=== PATIENT | male | born 1970 | race Caucasian/White ===

== ENCOUNTER 2018-03-16 06:06 | Outpatient (CLI) | payer BC ==
[~2018-03-16] VITALS: Ht 175.3 cm; Wt 88.0 kg
[2018-03-16] MEDS ORDERED: HYDR12.56 PO (12:56)
[2018-03-16] MEDS ORDERED: DICL75TA2 PO (12:56)
[2018-03-16] MEDS ORDERED: SIMV40TA4 PO (12:56)
[2018-03-16] MEDS ORDERED: TURM500C4 PO (12:56)
[2018-03-16] MEDS ORDERED: [UNRECOGNIZED DRUG - CODE] PO (12:56)
[2018-03-16] MEDS ORDERED: CHOL200059 PO (12:56)
[2018-03-16] MEDS ORDERED: TRAM50TA2 PO (12:56)
[2018-03-16] MEDS ORDERED: METF10002 PO (12:56)
[2018-03-16] MEDS ORDERED: PANT40TA3 PO (12:56)
== END 2018-03-16 13:00 ==
LOC: PREOP 06:06
PROVIDERS: ATTEND Otolaryngology Otolaryngology/Facial Plastic Surgery
DX: Z01.818 Encounter for other preprocedural examination (principal); J38.7 Other diseases of larynx

== ENCOUNTER 2018-03-20 07:33 | Day surgery (SDC) | payer BC ==
[~2018-03-20] VITALS: Ht 175.3 cm; Wt 88.0 kg
[~2018-03-20 07:33] MED LIST: CHOL200059 PO; DICL75TA2 PO; HYDR12.56 PO; METF10002 PO; PANT40TA3 PO; SIMV40TA4 PO; TRAM50TA2 PO; TURM500C4 PO; [UNRECOGNIZED DRUG - CODE] PO
[2018-03-20 08:35] VITALS: BP 154/91
[2018-03-20] MEDS ORDERED: LIDOCAINE/EPI 1%-1:200,000 (XYLOCAINE) 10 ML VIAL ONE (08:46)
[2018-03-20 08:52] LABS: BASOPHILS # (AUTO) 0.1 10^3/uL (0.0-0.1); BASOPHILS % (AUTO) 1 % (0-10); EOSINOPHILS # (AUTO) 0.3 10^3/uL (0.0-0.3); EOSINOPHILS % (AUTO) 6 % (0-10); HEMATOCRIT 38 % (40-54); HEMOGLOBIN 13.9 G/DL (13.3-17.7); LYMPHOCYTES # (AUTO) 1.6 X 10^3 (1.0-4.0); LYMPHOCYTES % (AUTO) 28 % (12-44); MEAN CORPUSCULAR HEMOGLOBIN 33 PG (25-34); MEAN CORPUSCULAR HGB CONC 37 G/DL (32-36); MEAN CORPUSCULAR VOLUME 89 FL (80-99); MEAN PLATELET VOLUME 9.8 FL (7.4-10.4); MONOCYTES # (AUTO) 0.5 X 10^3 (0.0-1.0); MONOCYTES % (AUTO) 10 % (0-12); NEUTROPHILS # (AUTO) 3.2 X 10^3 (1.8-7.8); NEUTROPHILS % (AUTO) 56 % (42-75); PLATELET COUNT 181 10^3/uL (130-400); RED BLOOD COUNT 4.27 10^6/uL (4.35-5.85); RED CELL DISTRIBUTION WIDTH 12.5 % (10.0-14.5); WHITE BLOOD COUNT 5.7 10^3/uL (4.3-11.0)
[2018-03-20 09:08] LABS: BUN/CREATININE RATIO 13; CALCIUM 9.3 MG/DL (8.5-10.1); CARBON DIOXIDE 25 MMOL/L (21-32); CHLORIDE 109 MMOL/L (98-107); CREATININE SERUM 0.72 MG/DL (0.60-1.30); GFR ESTIMATED > 60; GLUCOSE 133 MG/DL (70-105); POTASSIUM 3.8 MMOL/L (3.6-5.0); SODIUM 142 MMOL/L (135-145)
[2018-03-20] MEDS: LACTATED RINGERS 1,000 ML IV PRN ×2 (09:24→11:54)
--- NOTE | 2018-03-20 09:45 | Progress Note-Pre Operative ---
Pre-Operative Progress Note H&P Reviewed The H&P was reviewed, patient examined and no changes noted. Date Seen by Provider: Mar 20, 2018 Time Seen by Provider: :30 Date H&P Reviewed: Mar 20, 2018 Time H&P Reviewed: :30 Pre-Operative Diagnosis: Epiglottic Ulcer GALLITO THOMAS MD Mar 20, 2018 9:45 am
[2018-03-20] MEDS ORDERED: MIDAZOLAM 2 MG/2 ML (VERSED) VIAL ONE (09:52)
[2018-03-20] MEDS ORDERED: fentaNYL INJECTION 100 MCG/2 ML AMP ONE (09:52)
[2018-03-20] MEDS ORDERED: proPOfol 200 MG/20 ML (DIPRIVAN) VIAL IV ONE ×2 (10:30→11:12)
--- NOTE | 2018-03-20 11:07 | Progress Note-Post Operative ---
Post-Operative Progess Note Surgeon (s)/Primary Care Pediatrician (s) Surgeon GALLITO THOMAS MD Primary Care Pediatrician n/a Pre-Operative Diagnosis Epiglottic Ulcer Post-Operative Diagnosis same Post-Op Procedure Note Date of Procedure: Mar 20, 2018 Name of Procedure Performed: Direct Laryngosocy with Biopsy of Right Epiglottic Ulcer Description & Findings Description and Findings: n/a Anesthesia Type get Estimated Blood Loss minimal Packing none. Specimen(s) collected/removed right epiglottic ulcer for frozen and permanent GALLITO THOMAS MD Mar 20, 2018 11:07 am
[2018-03-20] MEDS ORDERED: NEOSTIGMINE 1 MG/ML 5 ML SYRINGE ONE (11:12)
[2018-03-20] MEDS ORDERED: SEVOFLURANE (ULTANE) 15 ML INHAL SOLN ONE ×3 (11:12→11:13)
[2018-03-20] MEDS ORDERED: LIDOCAINE PF 2% 5 ML (XYLOCAINE) VIAL ONE (11:12)
[2018-03-20] MEDS ORDERED: GLYCOPYRROLATE 0.2 MG/ML (ROBINUL) 2 ML VIAL ONE (11:12)
[2018-03-20] MEDS ORDERED: HYDROcodone/APAP 5 MG/325 MG (LORTAB) TAB PO PRN (11:15)
[2018-03-20] MEDS ORDERED: ACETAMINOPHEN 325 MG TABLET/CAPLET (TYLENOL) PO PRN (11:15)
[2018-03-20] MEDS ORDERED: PROMETHAZINE INJ 25 MG/ML (PHENERGAN) AMP IV PRN (11:15)
[2018-03-20] MEDS ORDERED: ROCURONIUM 10 MG/ML 5 ML SYRINGE IV ONE (11:35)
[2018-03-20 12:20] VITALS: BP 169/92
[2018-03-20 12:50] VITALS: BP 159/93
--- NOTE | 2018-03-20 13:03 | Anesthesia-General Post-Op ---
MAC Patient Condition Mental Status/LOC: Same as Preop Cardiovascular: Satisfactory Nausea/Vomiting: Absent Respiratory: Satisfactory Pain: Controlled Complications: Absent Post Op Complications Complications None Follow Up Care/Instructions Patient Instructions None needed. Anesthesiology Discharge Order Discharge Order Patient is doing well, no complaints, stable vital signs, no apparent adverse anesthesia problems. No complications reported per nursing. NIKOLAS TELLEZ CRNA Mar 20, 2018 13:03
[2018-03-20] MEDS ORDERED: ONDANSETRON 4 MG/2 ML (SDV) Z0FRAN IVP ONE (13:15)
[2018-03-20 13:20] VITALS: BP 155/87
[2018-03-20 13:45] VITALS: BP 155/87
== END 2018-03-20 13:45 | disposition home or self-care (01) ==
LOC: SDC 07:33
PROVIDERS: ATTEND Otolaryngology Otolaryngology/Facial Plastic Surgery
DX: J37.0 Chronic laryngitis (principal); J38.7 Other diseases of larynx; E11.9 Type 2 diabetes mellitus without complications; I10 Essential (primary) hypertension; F17.220 Nicotine dependence, chewing tobacco, uncomplicated; Z79.84 Long term (current) use of oral hypoglycemic drugs; Z79.899 Other long term (current) drug therapy
CPT/HCPCS: 36415; 80048; 82962; 85025; 87081; 88305; 88331; 93005